=== PATIENT | male | born 1990 | race Caucasian/White ===

== ENCOUNTER 2022-09-28 02:06 | Emergency (ER) | payer SELFPAY ==
[~2022-09-28] VITALS: Ht 167.6 cm; Wt 81.6 kg
--- NOTE | 2022-09-28 02:10 | NUR ---
PT [facility]ARR[facility]P TO CHAIR
[2022-09-28 02:13] VITALS: BP 163/104
[2022-09-28 02:35] VITALS: BP 163/104
--- NOTE | 2022-09-28 02:35 | NUR ---
PATIENT BIB [facility] POLICE DEPT. PATIENT EXAMINED BY DR. VANESSA. PATIENT MEDICALLY CLEARED AND RELEASED IN CUSTODY IN STABLE CONDITION. ORIGINAL PRE-BOOK FORM GIVEN TO OFFICER GENE.
== END 2022-09-28 02:35 ==
LOC: MED 02:06
DX: I10 Essential (primary) hypertension (principal); Z79.899 Other long term (current) drug therapy
CPT/HCPCS: 99283